=== PATIENT | female | born 1965 | race Caucasian/White ===

== ENCOUNTER → 2016-09-27 | Outpatient (CLI) | payer MEDICAID ==
--- NOTE | 2016-09-28 10:22 | MM ---
Reason for exam: screening (asymptomatic). Last mammogram was performed 1 year and 1 month ago. History: Patient is postmenopausal and has history of other cancer at age 45. Family history of premenopausal breast cancer in maternal aunt. Took hormonal contraceptives for 5 years beginning at age 17. Taking estrogen for 2 years 2 months beginning at age 45. Taking progesterone for 2 years 2 months beginning at age 45. Physical Findings: A clinical breast exam by your physician is recommended on an annual basis and results should be correlated with mammographic findings. MG Screening Mammo w CAD Bilateral CC and MLO view(s) were taken. Prior study comparison: September 08, 2015, bilateral MG 3d screening mammo w/cad. August 26, 2014, bilateral MG screening mammo w CAD. The breast tissue is heterogeneously dense. This may lower the sensitivity of mammography. No significant changes when compared with prior studies. ASSESSMENT: Benign, BI-RAD 2 RECOMMENDATION: Routine screening mammogram of both breasts in 1 year.
== END | disposition home or self-care (01) ==
LOC: RADMAMWWP 16:21
PROVIDERS: ATTEND Obstetrics & Gynecology
DX: Z12.31 Encounter for screening mammogram for malignant neoplasm of breast (principal)

== ENCOUNTER → 2017-05-30 | Outpatient (CLI) | payer MEDICAID | END | disposition home or self-care (01) | LOC: RADECHMAIN 11:53 | PROVIDERS: ATTEND Family Medicine | DX: R07.89 Other chest pain (principal) | CPT/HCPCS: 93270; 93271 ==

== ENCOUNTER → 2017-12-20 | Outpatient (CLI) | payer MEDICAID ==
--- NOTE | 2017-12-24 10:10 | MM ---
Reason for exam: screening (asymptomatic). Last mammogram was performed 1 year and 3 months ago. History: Patient is postmenopausal and has history of other cancer at age 45. Family history of premenopausal breast cancer in maternal aunt. Took hormonal contraceptives for 5 years beginning at age 17. Taking estrogen for 2 years 2 months beginning at age 45. Taking progesterone for 2 years 2 months beginning at age 45. Physical Findings: A clinical breast exam by your physician is recommended on an annual basis and results should be correlated with mammographic findings. MG 3D Screening Mammo W/Cad Bilateral CC and MLO view(s) were taken. Prior study comparison: September 27, 2016, bilateral MG screening mammo w CAD. September 08, 2015, bilateral MG 3d screening mammo w/cad. The breast tissue is heterogeneously dense. This may lower the sensitivity of mammography. Finding: There is a 6 mm high density mass located 3-4 cm from the nipple in the lower outer and lower inner quadrant of the left breast consistent with possible cysts. New finding since September 27, 2016 and September 08, 2015. ASSESSMENT: Incomplete: need additional imaging evaluation, BI-RAD 0 RECOMMENDATION: Ultrasound of the left breast. [facility] will attempt to contact patient to return for ultrasound.
== END | disposition home or self-care (01) ==
LOC: RADMAMWWP 16:14
PROVIDERS: ATTEND Obstetrics & Gynecology
DX: Z12.31 Encounter for screening mammogram for malignant neoplasm of breast (principal)
CPT/HCPCS: 77063; 77067

== ENCOUNTER → 2017-12-25 | Outpatient (CLI) | payer MEDICAID ==
--- NOTE | 2017-12-25 11:31 | USB ---
Reason for exam: additional evaluation requested from abnormal screening. History: Patient is postmenopausal and has history of other cancer at age 45. Family history of premenopausal breast cancer in maternal aunt. Took hormonal contraceptives for 5 years beginning at age 17. Taking estrogen for 2 years 2 months beginning at age 45. Taking progesterone for 2 years 2 months beginning at age 45. Physical Findings: Nurse did not find any significant physical abnormalities on exam. US Breast Workup Limited LT Left limited breast ultrasound including focal area of concern, retroareolar and axilla demonstrates a 1.0 x 0.6 x 0.4cm cystic lesion at 3 o'clock, a 0.7 x 0.7 x 0.3cm hyperechoic lesion at 7 o'clock probable lipoma and a 0.7 x 0.5 x 0.4cm cystic lesion at 9 o'clock. These results were verbally communicated with the patient and result sheet given to the patient on 12/25/17. ASSESSMENT: Probably benign, BI-RAD 3 RECOMMENDATION: Follow-up diagnostic mammogram and ultrasound of the left breast in 6 months.
== END | disposition home or self-care (01) ==
LOC: RADUSWWP 09:48
PROVIDERS: ATTEND Obstetrics & Gynecology
DX: R92.8 Other abnormal and inconclusive findings on diagnostic imaging of breast (principal)

== ENCOUNTER → 2018-02-12 | Outpatient (CLI) | payer MEDICAID ==
--- NOTE | 2018-02-12 14:34 | MR ---
EXAMINATION TYPE: MR knee RT wo con DATE OF EXAM: 02/12/2018 COMPARISON: None HISTORY: Rt knee pain, S/P fall 01-21-18 TECHNIQUE: Multiplanar, multisequence imaging of the right knee is performed without IV contrast. FINDINGS: MEDIAL MENISCUS: Anterior horn of the medial meniscus appears intact. There is some mild increased si gnal within the posterior horn of the medial meniscus. Internal derangement may be present. LATERAL MENISCUS: Anterior and posterior horns are intact without tear. CRUCIATE LIGAMENTS: The anterior and posterior cruciate ligaments are intact and unremarkable. COLLATERAL LIGAMENTS: The medial collateral ligament and lateral collateral ligament complex are inta ct and unremarkable. EXTENSOR MECHANISM: Visualized quadriceps and patellar tendons are intact. EFFUSION: There is a small to moderate joint effusion. POPLITEAL CYST: No popliteal/rose cyst. TRICOMPARTMENT SPACES: There is narrowing of the medial compartment joint space. Lateral compartment joint space appears more preserved. Patellofemoral joint space appears preserved. CARTILAGE: There is thinning of the articular cartilage of the medial compartment joint space. Remain ing sections. Have normal articular cartilage BONE MARROW SIGNAL: No focal abnormal marrow signal is appreciated. OTHER: No additional significant abnormality is appreciated. IMPRESSION: 1. There is mild degenerative changes of the medial compartment joint space. 2. Mild to moderate joint effusion. 3. Internal derangement posterior horn medial meniscus.
== END ==
LOC: RADMRIMAIN 13:51
PROVIDERS: ATTEND Orthopaedic Surgery
DX: M25.561 Pain in right knee (principal); M23.321 Other meniscus derangements, posterior horn of medial meniscus, right knee; M17.11 Unilateral primary osteoarthritis, right knee

== ENCOUNTER 2019-01-31 12:06 | Day surgery (SDC) | payer MEDICAID ==
[2019-01-27 14:45] VITALS: BMI 24.1
[~2019-01-31 12:06] MED LIST: LACTATED RINGERS 1,000 ML IV SCH
[2019-01-31 12:26] VITALS: TEMP 97.3
[2019-01-31] MEDS ORDERED: LIDOCAINE 1% 20 ML VIAL (10MG/ML) FOR IV START INTRADERMA ONE (12:30)
[2019-01-31] MEDS ORDERED: PROPOFOL 10 MG/ML 20 ML VIAL IV ONE (14:00)
[2019-01-31] MEDS ORDERED: LIDOCAINE 1% INJ 10MG/ML (20 ML MDV) ONE (14:00)
--- NOTE | 2019-01-31 14:09 | P.GSHP ---
History of Present Illness H&P Date: 01/31/19 Chief Complaint: Colon cancer screening Patient here today for colonoscopy. History of possible ulcerative colitis in her youth. Last colonoscopy 7-10 years ago. That was normal. No significant bowel complaints. No family history colon cancer. Past Medical History Past Medical History: No Reported History History of Any Multi-Drug Resistant Organisms: None Reported Past Surgical History: Section, Hysterectomy, Orthopedic Surgery Additional Past Surgical History / Comment(s): bilat shoulder sx. colonoscopies. d & c Past Anesthesia/Blood Transfusion Reactions: Postoperative Nausea & Vomiting (PONV) Smoking Status: Never smoker - Past Family History Father Family Medical History: Deep Vein Thrombosis (DVT) Medications and Allergies Home Medications Medication Instructions Recorded Confirmed Type No Known Home Medications 01/27/19 01/27/19 History Allergies Allergy/AdvReac Type Severity Reaction Status Date / Time metronidazole [From Flagyl] Allergy Rash/Hives Verified 01/27/19 14:42 Surgical - Exam Vital Signs Temp Pulse Resp BP Pulse Ox 97.3 F L 99 16 137/71 97 01/31/19 12:21 01/31/19 12:21 01/31/19 12:21 01/31/19 12:21 01/31/19 12:21 Physical exam: General: Well-developed, well-nourished HEENT: Normocephalic, sclerae nonicteric Abdomen: Nontender, nondistended Extremities: No edema Neuro: Alert and oriented Assessment and Plan (1) Colon cancer screening Narrative/Plan: Will proceed with colonoscopy at this time Current Visit: Yes Status: Acute Code(s): Z12.11 - ENCOUNTER FOR SCREENING FOR MALIGNANT NEOPLASM OF COLON SNOMED Code(s): 744161831
--- NOTE | 2019-01-31 14:24 | P.PCN ---
Date of Procedure: 01/31/19 Procedure(s) Performed: PREOPERATIVE DIAGNOSIS: Colon cancer screening POSTOPERATIVE DIAGNOSIS: Normal exam PROCEDURE: Colonoscopy ANESTHESIA: MAC SURGEON: Ramirez Soto M.D. SPECIMENS: None ENDOSCOPIC PROCEDURE: The patient was placed on the endoscopy table in the left decubitus position. The Olympus colonoscope was inserted into the anus and passed under direct visualization to the base of the cecum. The appendiceal orifice was visualized. From that point the scope was slowly withdrawn inspecti ng all surfaces carefully. There were no neoplastic inflammatory or polypoid lesions throughout the cecum, ascending, transverse, descending, sigmoid and rectum. There was no visible diverticulosis noted. Digital rectal examination was normal. The patient was taken to the recovery room in stable condition per anesthesia guidelines. RECOMMENDATIONS: Increase fiber. Follow-up colonoscopy 10 years.
[2019-01-31 14:52] VITALS: BP 125/79; PULSE 74; RESP 16
[2019-01-31] MEDS ORDERED: diphenhydrAMINE 50 MG/ML 1 ML VIAL IVP ONE (15:00)
== END 2019-01-31 15:18 | disposition home or self-care (01) ==
LOC: ORWHC2ENDO 12:06
PROVIDERS: ATTEND Surgery
DX: Z12.11 Encounter for screening for malignant neoplasm of colon (principal); Z90.710 Acquired absence of both cervix and uterus; K59.00 Constipation, unspecified; Z88.1 Allergy status to other antibiotic agents
CPT/HCPCS: J1200; J2001; J2704; G0121

== ENCOUNTER → 2021-06-14 | Outpatient (CLI) | payer MEDICAID ==
--- NOTE | 2021-06-14 10:09 | XR ---
EXAMINATION TYPE: XR shoulder complete RT DATE OF EXAM: 06/14/2021 CLINICAL HISTORY: pain TECHNIQUE: Three views of the right shoulder are obtained. COMPARISON: None FINDINGS: There is no acute fracture/dislocation evident. The acromioclavicular and glenohumeral juan pablo int spaces appear within normal limits. The visualized ribs are intact and unremarkable. IMPRESSION: 1. There is no acute fracture or dislocation. ICD 10 NO FRACTURE, INITIAL EVALUATION
--- NOTE | 2021-06-14 10:10 | XR ---
EXAMINATION TYPE: XR ankle complete RT DATE OF EXAM: 06/14/2021 COMPARISON: NONE HISTORY: Pain TECHNIQUE: Frontal, lateral and oblique images of the right ankle are obtained. COMPARISON: None. FINDINGS: There is no acute fracture/dislocation evident. The joint spaces appear within normal trevizo its. The overlying soft tissue appears unremarkable. IMPRESSION: There is no acute fracture or dislocation seen.
--- NOTE | 2021-06-14 10:11 | XR ---
EXAMINATION TYPE: XR finger RT DATE OF EXAM: 06/14/2021 CLINICAL HISTORY: pain 3rd digit. TECHNIQUE: 3 views of the 3rd digit are submitted. COMPARISON: None FINDINGS: No displaced fracture is seen with certainty. Joint spaces are well-preserved. Correlate for soft tissue injury. IMPRESSION: No acute displaced fracture or dislocation.
== END | disposition home or self-care (01) ==
LOC: RADXRYALE 09:42
PROVIDERS: ATTEND Physician Assistant Medical
DX: M25.511 Pain in right shoulder (principal); M25.571 Pain in right ankle and joints of right foot; M79.644 Pain in right finger(s)

== ENCOUNTER → 2022-01-10 | Outpatient (CLI) | payer MEDICAID ==
--- NOTE | 2022-01-10 08:05 | US ---
EXAMINATION TYPE: US pelvic limited DATE OF EXAM: 01/10/2022 COMPARISON: NONE CLINICAL HISTORY: R10.30 LOWER ABDOMINAL PAIN, UNSPECIFIED. Lower abdominal pain, complete hysterectomy in 2010 TECHNIQUE: Transabdominal (TA). Transabdominal sonographic images of the pelvis were acquired. Date of LMP: 2010 EXAM MEASUREMENTS: Uterus: Surgically absent Endometrial Stripe: Surgically absent Right Ovary: Surgically absent Left Ovary: Surgically absent 1. Uterus: Surgically absent 2. Endometrium: Surgically absent 3. Right Ovary: Surgically absent 4. Left Ovary: Surgically absent 5. Bilateral Adnexa: Appears wnl 6. Posterior cul-de-sac: Appears wnl No abnormalities seen in pelvis area, patient had a complete hysterectomy in 2011. IMPRESSION: Postsurgical change with no abnormal fluid collection or abnormal pelvic mass. TIFFANIED
--- NOTE | 2022-01-10 08:24 | US ---
EXAMINATION TYPE: US abdomen complete DATE OF EXAM: 01/10/2022 COMPARISON: NONE CLINICAL HISTORY: R10.30 LOWER ABDOMINAL PAIN, UNSPECIFIED. Lower abdominal pain EXAM MEASUREMENTS: Liver Length: 13.2 cm Gallbladder Wall: 0.3 cm CBD: 0.3 cm Spleen: 10.9 cm Right Kidney: 12.8 x 3.8 x 5.0 cm Left Kidney: 11.7 x 4.3 x 5.4 cm Pancreas: Appears wnl Liver: No abnormalities seen Gallbladder: No stones seen Evidence for sonographic Perla's sign: No CBD: Appears wnl Spleen: No abnormalities seen Right Kidney: No hydronephrosis or masses seen Left Kidney: Nonobstructing calcification seen measuring 0.7 cm Upper IVC: Appears wnl Abd Aorta: Appears wnl Prox: 2.0 x 2.4 cm Mid: 2.0 x 2.3 cm Dist: 1.4 x 1.6 cm Rt Iliac: 0.8 x 1.1 cm Lt iliac: 1.0 x 0.8 cm IMPRESSION: 1. Nonobstructing left renal calculus.
== END | disposition home or self-care (01) ==
LOC: RADUSWWP 06:59
PROVIDERS: ATTEND Family Medicine
DX: N20.0 Calculus of kidney (principal)
CPT/HCPCS: 76700; 76856; 76857

== ENCOUNTER → 2022-06-13 | Outpatient (CLI) | payer BC ==
--- NOTE | 2022-06-14 08:00 | MM ---
Reason for Exam: Screening (asymptomatic). Last mammogram was performed 1 year(s) and 4 month(s) ago. Patient History: Menarche at age 12. First Full-Term at age 26. Left ovary removed at age 45. Right ovary removed at age 45. Hysterectomy at age 45. Postmenopausal. Other cancer, age 45. Currently using Estrogen, beginning at age 45 for 2 years, 2 months. Progesterone, starting at age 45 for 2 years, 2 months. Hormonal Contraceptives, starting at age 17 for 5 years. Maternal aunt had breast cancer. Risk Values: Luana 5 year model risk: 1.4%. NCI Lifetime model risk: 9.9%. Prior Study Comparison: 09/08/2015 Bilateral Screening Mammogram, [facility]. 09/27/2016 Bilateral Screening Mammogram, [facility]. 12/20/2017 Bilateral Screening Mammogram, [facility]. 01/16/2020 Bilateral US breast workup limited [facility] [address] 01/16/2020 Bilateral US breast workup limited [facility] - [address] [place] [address]. [facility] 02/18/2021 Right US breast workup limited RT - [address] [place] [address]. Tissue Density: The breast tissue is heterogeneously dense. This may lower the sensitivity of mammography. Findings: Analyzed By CAD. Scattered focal asymmetries which were evaluated at outside institutions consistent with cysts in the right wrist and 02/18/2021 and within the bilateral breasts on 01/16/2020 are not significantly changed in mammography. There is no suspicious group of microcalcifications or new suspicious mass in either breast. Overall Assessment: Benign, BI-RAD 2 Management: Screening Mammogram of both breasts in 1 year. A clinical breast exam by your physician is recommended on an annual basis and results should be correlated with mammographic findings. [facility] will attempt to contact patient to return for supplemental views and ultrasound if indicated. Electronically signed and approved by: Mickey Chavarria DO
== END | disposition home or self-care (01) ==
LOC: RADMAMWWP 07:48
PROVIDERS: ATTEND Obstetrics & Gynecology
DX: Z12.31 Encounter for screening mammogram for malignant neoplasm of breast (principal); Z78.0 Asymptomatic menopausal state; Z80.3 Family history of malignant neoplasm of breast
CPT/HCPCS: 77063; 77067

== ENCOUNTER → 2024-01-15 | Outpatient (CLI) | payer BC ==
--- NOTE | 2024-01-17 12:08 | MM ---
Reason for Exam: Screening (asymptomatic). Last mammogram was performed 1 year(s) and 7 month(s) ago. Patient History: Menarche at age 12. First Full-Term at age 26. Left ovary removed at age 45. Right ovary removed at age 45. Hysterectomy at age 45. Postmenopausal. Other cancer, age 45. Estrogen, starting at age 45 for 2 years, 2 months. Progesterone, starting at age 45 for 2 years, 2 months. Hormonal Contraceptives, starting at age 17 for 5 years. Maternal aunt had breast cancer. Risk Values: Luana 5 year model risk: 1.6%. NCI Lifetime model risk: 9.5%. Prior Study Comparison: 01/21/2021 Bilateral MG 3D screening mammo w/cad, [facility]. 01/21/2021 Bilateral MG 3D screening mammo w/cad, [facility]. 06/13/2022 Bilateral MG 3D screening mammo w/cad, [facility]. Tissue Density: The breasts are heterogeneously dense, which may obscure small masses. Findings: Analyzed By CAD. There is no suspicious group of microcalcifications or new suspicious mass in either breast. Overall Assessment: Negative, BI-RAD 1 Management: Screening Mammogram of both breasts in 1 year. . Patient should continue monthly self-breast exams. A clinical breast exam by your physician is recommended on an annual basis. This exam should not preclude additional follow-up of suspicious palpable abnormalities. Note on Luana scores and lifetime risk: 1. A Luana score greater than 3% is considered moderate risk. If this is the case, consider specialist referral to assess eligibility for a risk reducing agent. 2. If overall lifetime risk for the development of breast cancer is 20% or higher, the patient may qualify for future screening with alternating mammogram and breast MRI. Electronically signed and approved by: Aidan Kohli M.D. Radiologis
== END | disposition home or self-care (01) ==
LOC: RADMAMWWP 15:33
PROVIDERS: ATTEND Family Medicine
DX: Z12.31 Encounter for screening mammogram for malignant neoplasm of breast (principal); R92.333 Mammographic heterogeneous density, bilateral breasts; Z78.0 Asymptomatic menopausal state; Z80.3 Family history of malignant neoplasm of breast; Z90.721 Acquired absence of ovaries, unilateral
CPT/HCPCS: 77063; 77067

== ENCOUNTER → 2024-07-10 | Outpatient (CLI) | payer BC ==
--- NOTE | 2024-07-10 09:49 | US ---
EXAMINATION TYPE: US abdomen limited DATE OF EXAM: 07/10/2024 COMPARISON: ULTRASOUND CLINICAL INDICATION: Female, 58 years old with history of R94.5 ABNORMAL RESULTS OF LIVER FUNCTION ST UDIES; LFTs TECHNIQUE: Grayscale and color Doppler imaging of the right upper quadrant was performed. FINDINGS: EXAM MEASUREMENTS: Liver Length: 14.1 cm Gallbladder Wall: 0.2 cm CBD: 0.3 cm Right Kidney: 11.9x3.5x5.1 cm CREDIT AUTHORIZER NOTES: Pancreas: Tail obscured by overlying bowel gas Liver: wnl Gallbladder: wnl Evidence for sonographic Perla's sign: No CBD: wnl Right Kidney: wnl exam slightly limited by bowel gas IMPRESSION: No evidence for acute process. Normal sonographic appearance of the liver. [facility], , 07/10/2024 9:46 AM
== END | disposition home or self-care (01) ==
LOC: RADUSWWP 08:40
PROVIDERS: ATTEND Family Medicine
DX: R94.5 Abnormal results of liver function studies (principal)
CPT/HCPCS: 76705